=== PATIENT | male | born 1940 | race Caucasian/White ===

== ENCOUNTER → 2016-08-31 | Outpatient (CLI) | payer BC | LOC: CIMAGING 09:51 | PROVIDERS: ATTEND Internal Medicine | DX: G62.9 Polyneuropathy, unspecified (principal); I25.10 Atherosclerotic heart disease of native coronary artery without angina pectoris; E78.5 Hyperlipidemia, unspecified; R73.09 Other abnormal glucose | CPT/HCPCS: 73564-PO ==

== ENCOUNTER → 2017-06-16 | Outpatient (CLI) | payer BC | LOC: CIMAGING 13:22 | PROVIDERS: ATTEND Internal Medicine | DX: R06.89 Other abnormalities of breathing (principal) | CPT/HCPCS: 71046-PO ==

== ENCOUNTER → 2017-12-20 | Outpatient (CLI) | payer BC | LOC: CIMAGING 10:20 | PROVIDERS: ATTEND Internal Medicine | DX: R60.0 Localized edema (principal) | CPT/HCPCS: 93971-PO ==